=== PATIENT | male | born 1990 | race Caucasian/White ===

== ENCOUNTER 2021-01-17 06:29 | Emergency (ER) | payer OTHER ==
[~2021-01-17 06:29] MED LIST: NORCO 10-325 T1 EACH PO; NORCO 5-325 TA1 EACH PO
[2021-01-17 08:15] LABS: HEMOGLOBIN 17.3 gm/dl (14.0-17.5); RED BLOOD COUNT 5.36 M/UL (4.20-5.50); WHITE BLOOD COUNT 12.3 K/UL (4.5-11.0)
[2021-01-17 08:45] LABS: BUN/CREATININE RATIO 16 (0-10)
== END 2021-01-17 11:25 | disposition home or self-care (01) ==
LOC: ER1 06:29
PROVIDERS: Student in an Organized Health Care Education/Training Program
DX: E86.0 Dehydration (principal); R31.9 Hematuria, unspecified; E80.7 Disorder of bilirubin metabolism, unspecified; F41.9 Anxiety disorder, unspecified; Z88.8 Allergy status to other drugs, medicaments and biological substances; Z79.899 Other long term (current) drug therapy
CPT/HCPCS: 80053; 81001; 82550; 82553; 83605; 83690; 83874; 84484; 85025; 93005

== ENCOUNTER 2021-01-17 22:32 | Emergency (ER) | payer OTHER ==
[2021-01-17 23:57] LABS: HEMOGLOBIN 16.8 gm/dl (14.0-17.5); RED BLOOD COUNT 5.24 M/UL (4.20-5.50); WHITE BLOOD COUNT 11.2 K/UL (4.5-11.0)
[2021-01-18 00:16] LABS: BUN/CREATININE RATIO 15 (0-10)
== END 2021-01-18 04:49 | disposition home or self-care (01) ==
LOC: ER1 22:32
PROVIDERS: Physician Assistant
DX: N28.1 Cyst of kidney, acquired (principal); Z88.8 Allergy status to other drugs, medicaments and biological substances
CPT/HCPCS: 80053; 81001; 82550; 82553; 83605; 83690; 83874; 84484; 85025; 87086; 93005; 99284; Q9967